=== PATIENT | male | born 1940 | race Hispanic/Latino ===

== ENCOUNTER 2017-11-05 09:25 | Outpatient (CLI) | payer MEDICARE ==
--- NOTE | 2017-11-05 14:25 | Vascular Lab Report ---
Right Lower Extremity Venous Duplex Study: Reason for Exam: Pain and swelling of the right lower extremity. Comments on the Right: All veins visualized are freely compressible without evidence of internal echogenicity. Flow is spontaneous and phasic throughout. No evidence of acute or chronic thrombus is seen in any of the vessels visualized. Greater saphenous vein appears to be absent. Comments on the Left: A limited duplex study was done of the proximal veins of the left lower extremity. All veins visualized are freely compressible without evidence of internal echogenicity. Flow is spontaneous and phasic throughout. No evidence of acute or chronic thrombus is seen in any of the vessels visualized. Impression: No evidence of acute or chronic deep venous thrombosis in the right lower extremity.
== END 2017-11-05 09:26 | disposition home or self-care (01) ==
LOC: VAS 09:25
PROVIDERS: ATTEND Internal Medicine
DX: M79.604 Pain in right leg (principal); M79.89 Other specified soft tissue disorders; I10 Essential (primary) hypertension

== ENCOUNTER 2018-07-28 07:55 | Outpatient (CLI) | payer MEDICARE ==
[2018-07-28 08:21] LABS: Blood Urea Nitrogen 16 mg/dL (9-20)
--- NOTE | 2018-07-28 09:20 | Cat Scan Report ---
CTA CHEST: HISTORY: Dyspnea. COMPARISON: none. TECHNIQUE: Helical CT in 1.25mm intervals following IV contrast. Pulmonary embolus protocol. Sagittal and coronal reformatted images. Rotational MIP images. FINDINGS: Contrast bolus is satisfactory. No pulmonary embolus is identified. Thyroid gland: Normal. Tracheobronchial tree: Normal. Esophagus: Normal. Heart: Normal. Previous CABG changes are identified. Pericardium: Normal. Mediastinum: Normal. Lung [place]: Normal. Pleural Spaces: Normal. Musculoskeletal: Intact. Mild thoracic spondylosis. IMPRESSION: No evidence for pulmonary embolus. Unremarkable CT chest with contrast.
== END 2018-07-28 07:56 | disposition home or self-care (01) ==
LOC: CT 07:55
PROVIDERS: ATTEND Internal Medicine Critical Care Medicine
DX: R06.02 Shortness of breath (principal); I10 Essential (primary) hypertension
CPT/HCPCS: 36415; 71275; 82565; 84520; Q9967

== ENCOUNTER 2021-06-03 18:35 | Emergency (ER) | payer MEDICARE ==
[2021-06-03] MEDS ORDERED: NITROGLYCERIN 2% OINT 1 GM TP ONE (21:55)
--- NOTE | 2021-06-03 22:12 | Emergency Department Report ---
ED Chest Pain HPI - General Chief Complaint: Chest Pain Stated Complaint: CHEST PAIN Time Seen by Provider: 06/03/21 21:48 Source: EMS Mode of arrival: Stretcher Limitations: No Limitations - History of Present Illness Initial Comments: Patient is an 81-year-old male with a past medical history of hypertension and coronary artery disease status post two-vessel CABG in 2010 as well as multiple abdominal surgeries who is presenting with chest pain. Patient states he was home at rest and started having some central chest pressure which he states was a heaviness. Some associated shortness of breath. Denies nausea vomiting diarrhea cough cold or congestion. Patient took his blood pressure and his systolic was greater than 200. He called his physician who told him to take some deep breaths and recheck his blood pressure. The pressure did improve however the patient's pain came back and his pressure went up again. This prompted him to call paramedics to bring him to the hospital. Patient states he has been chest pain-free since his two-vessel CABG. - Related Data Home Medications Medication Instructions Recorded Confirmed Last Taken Atorvastatin [Lipitor] 40 mg PO QHS 01/11/14 01/11/14 01/11/14 Cyanocobalamin/Folic Acid [Vitamin 1 each PO DAILY 01/11/14 01/11/14 01/11/14 D03-Vsaxs Acid Tablet] Lubiprostone (Nf) [Amitiza (Nf)] 24 mcg PO DAILY 01/11/14 01/11/14 01/11/14 Metoprolol Xl [Metoprolol 25 mg PO QDAY 01/11/14 01/11/14 01/11/14 SUCCINATE ER TAB] Olmesartan/Hydrochlorothiazide 1 tab PO QDAY 01/11/14 01/11/14 01/11/14 [Benicar HCT 40-12.5 mg] Testosterone [Axiron] 30 mg TD DAILY 01/11/14 01/11/14 01/11/14 Previous Rx's Medication Instructions Recorded Last Taken Type Eltrombopag Olamine [Promacta] 100 mg PO DAILY #30 tablet 05/27/18 Unknown Rx predniSONE [Deltasone] 20 mg PO 5XD #25 tab 05/27/18 Unknown Rx Allergies Allergy/AdvReac Type Severity Reaction Status Date / Time NSAIDS (Non-Steroidal Allergy Unknown Verified 06/03/21 21:46 Anti-Inflamma Heart Score - HEART Score History: Moderately suspicious EKG: Non-specific Age: > 65 Risk factors: > 3 risk factors or hx of atherosclerotic disease Troponin: < normal limit HEART Score: 6 - EKG Read Time Time EKG Completed: 19:57 EKG Read Time: 20:00 ED Review of Systems ROS: Stated complaint: CHEST PAIN Other details as noted in HPI Comment: All other systems reviewed and negative ED Past Medical Hx - Past Medical History Hx Hypertension: Yes Hx Heart Attack/AMI: Yes (2011) Hx Liver Disease: Yes (hep B) Additional medical history: cataract, gore syndrome, Sleep apnea - Surgical History Additional Surgical History: bypass 2011, shoulder, AAA repair 2008 - Social History Smoking Status: Never Smoker - Medications Home Medications: Home Medications Medication Instructions Recorded Confirmed Last Taken Type Atorvastatin [Lipitor] 40 mg PO QHS 01/11/14 01/11/14 01/11/14 History Cyanocobalamin/Folic Acid [Vitamin 1 each PO DAILY 01/11/14 01/11/14 01/11/14 History C14-[id number] Acid Tablet] Lubiprostone (Nf) [Amitiza (Nf)] 24 mcg PO DAILY 01/11/14 01/11/14 01/11/14 History Metoprolol Xl [Metoprolol 25 mg PO QDAY 01/11/14 01/11/14 01/11/14 History SUCCINATE ER TAB] Olmesartan/Hydrochlorothiazide 1 tab PO QDAY 01/11/14 01/11/14 01/11/14 History [Benicar HCT 40-12.5 mg] Testosterone [Axiron] 30 mg TD DAILY 01/11/14 01/11/14 01/11/14 History Eltrombopag Olamine [Promacta] 100 mg PO DAILY #30 tablet 05/27/18 Unknown Rx predniSONE [Deltasone] 20 mg PO 5XD #25 tab 05/27/18 Unknown Rx ED Physical Exam - General Limitations: No Limitations General appearance: alert, in no apparent distress, other (pleasent and in no obvious distress) - Head Head exam: Present: atraumatic, normocephalic - Eye Eye exam: Present: normal appearance, PERRL, EOMI - ENT ENT exam: Present: mucous membranes moist - Neck Neck exam: Present: normal inspection - Respiratory Respiratory exam: Present: normal lung sounds bilaterally. Absent: respiratory distress, wheezes, rales, rhonchi - Cardiovascular Cardiovascular Exam: Present: regular rate, normal rhythm, normal heart sounds. Absent: systolic murmur, diastolic murmur, rubs, gallop - GI/Abdominal GI/Abdominal exam: Present: soft, normal bowel sounds. Absent: distended, t enderness, guarding, rebound, rigid - Rectal Rectal exam: Present: deferred - Extremities Exam Extremities exam: Present: normal inspection - Back Exam Back exam: Present: normal inspection - Neurological Exam Neurological exam: Present: alert, oriented X3 - Psychiatric Psychiatric exam: Present: normal affect, normal mood - Skin Skin exam: Present: warm, dry, intact, normal color. Absent: rash ED Course Vital Signs 06/03/21 06/03/21 06/04/21 21:49 22:51 00:01 Temperature 98.9 F Pulse Rate 96 H 89 97 H Respiratory 16 18 Rate Blood Pressure 149/78 Blood Pressure 160/95 137/83 [Left] O2 Sat by Pulse 97 2 L Oximetry 06/04/21 06/04/21 06/04/21 00:30 01:39 02:08 Temperature Pulse Rate 82 83 81 Respiratory 17 17 16 Rate Blood Pressure Blood Pressure 127/71 131/76 121/64 [Left] O2 Sat by Pulse 99 99 98 Oximetry KAREN score - Karen Score Age > 65: (1) Yes Aspirin use within the Past 7 Days: (1) Yes 3 or more CAD Risk Factors: (1) Yes 2 or more Angina events in past 24 hrs: (1) Yes Known CAD with more than 50% Stenosis: (0) No Elevated Cardiac Markers: (0) No ST Deviation Greater than 0.5mm: (0) No KAREN Score: 4 ED Medical Decision Making - Lab Data Result diagrams: 06/03/21 22:43 06/03/21 22:43 Lab Results 06/03/21 06/03/21 06/03/21 Range/Units 22:43 22:43 22:43 WBC 8.5 (4.5-11.0) K/mm3 RBC 5.57 H (3.65-5.03) M/mm3 Hgb 16.3 H (11.8-15.2) gm/dl Hct 51.9 H (35.5-45.6) % MCV 93 (84-94) fl MCH 29 (28-32) pg MCHC 31 L (32-34) % RDW 14.8 (13.2-15.2) % Plt Count 220 (140-440) K/mm3 Lymph % (Auto) 4.8 L (13.4-35.0) % [place] % (Auto) 15.3 H (0.0-7.3) % Eos % (Auto) 1.5 (0.0-4.3) % Baso % (Auto) 0.6 (0.0-1.8) % Lymph # (Auto) 0.4 L (1.2-5.4) K/mm3 [place] # (Auto) 1.3 H (0.0-0.8) K/mm3 Eos # (Auto) 0.1 (0.0-0.4) K/mm3 Baso # (Auto) 0.0 (0.0-0.1) K/mm3 Seg Neutrophils % 77.8 H (40.0-70.0) % Seg Neutrophils # 6.6 (1.8-7.7) K/mm3 PT 13.0 (12.2-14.9) Sec. INR 0.88 (0.87-1.13) APTT 26.0 (24.2-36.6) Sec. D-Dimer 940.56 H (0-234) ng/mlDDU Sodium (137-145) mmol/L Potassium (3.6-5.0) mmol/L Chloride (98-107) mmol/L Carbon Dioxide (22-30) mmol/L Anion Gap mmol/L BUN (9-20) mg/dL Creatinine (0.8-1.3) mg/dL Estimated GFR ml/min BUN/Creatinine Ratio % Glucose (75-100) mg/dL Calcium (8.4-10.2) mg/dL Total Bilirubin (0.1-1.2) mg/dL AST (5-40) units/L ALT (7-56) units/L Alkaline Phosphatase (35-129) units/L Troponin T (0.00-0.029) ng/mL NT-Pro-B Natriuret Pep 255.9 (0-900) pg/mL Total Protein (6.3-8.2) g/dL Albumin (3.9-5) g/dL Albumin/Globulin Ratio % Urine Color (Yellow) Urine Turbidity (Clear) Urine pH (5.0-7.0) Ur Specific [place] (1.003-1.030) Urine Protein (Negative) mg/dL Urine Glucose (UA) (Negative) mg/dL Urine Ketones (Negative) mg/dL Urine Blood (Negative) Urine Nitrite (Negative) Urine Bilirubin (Negative) Urine Urobilinogen (<2.0) mg/dL Ur Leukocyte Esterase (Negative) Urine WBC (Auto) (0.0-6.0) /HPF Urine RBC (Auto) (0.0-6.0) /HPF Urine WBC Clumps /HPF Urine Yeast (Budding) /HPF 06/03/21 06/04/21 Range/Units 22:43 01:12 WBC (4.5-11.0) K/mm3 RBC (3.65-5.03) M/mm3 Hgb (11.8-15.2) gm/dl Hct (35.5-45.6) % MCV (84-94) fl MCH (28-32) pg MCHC (32-34) % RDW (13.2-15.2) % Plt Count (140-440) K/mm3 Lymph % (Auto) (13.4-35.0) % [place] % (Auto) (0.0-7.3) % Eos % (Auto) (0.0-4.3) % Baso % (Auto) (0.0-1.8) % Lymph # (Auto) (1.2-5.4) K/mm3 [place] # (Auto) (0.0-0.8) K/mm3 Eos # (Auto) (0.0-0.4) K/mm3 Baso # (Auto) (0.0-0.1) K/mm3 Seg Neutrophils % (40.0-70.0) % Seg Neutrophils # (1.8-7.7) K/mm3 PT (12.2-14.9) Sec. INR (0.87-1.13) APTT (24.2-36.6) Sec. D-Dimer (0-234) ng/mlDDU Sodium 141 (137-145) mmol/L Potassium 3.4 L (3.6-5.0) mmol/L Chloride 101.8 (98-107) mmol/L Carbon Dioxide 25 (22-30) mmol/L Anion Gap 18 mmol/L BUN 10 (9-20) mg/dL Creatinine 1.3 (0.8-1.3) mg/dL Estimated GFR 53 ml/min BUN/Creatinine Ratio 8 % Glucose 84 (75-100) mg/dL Calcium 8.6 (8.4-10.2) mg/dL Total Bilirubin 1.50 H (0.1-1.2) mg/dL AST 24 (5-40) units/L ALT 24 (7-56) units/L Alkaline Phosphatase 88 (35-129) units/L Troponin T < 0.010 (0.00-0.029) ng/mL NT-Pro-B Natriuret Pep (0-900) pg/mL Total Protein 6.2 L (6.3-8.2) g/dL Albumin 3.9 (3.9-5) g/dL Albumin/Globulin Ratio 1.7 % Urine Color Red (Yellow) Urine Turbidity Cloudy (Clear) Urine pH 5.0 (5.0-7.0) Ur Specific [place] 1.028 (1.003-1.030) Urine Protein >500 (Negative) mg/dL Urine Glucose (UA) Neg (Negative) mg/dL Urine Ketones Tr (Negative) mg/dL Urine Blood Lg (Negative) Urine Nitrite Neg (Negative) Urine Bilirubin Neg (Negative) Urine Urobilinogen < 2.0 (<2.0) mg/dL Ur Leukocyte Esterase Mod (Negative) Urine WBC (Auto) > 182.0 H (0.0-6.0) /HPF Urine RBC (Auto) > 182.0 (0.0-6.0) /HPF Urine WBC Clumps 3+ /HPF Urine Yeast (Budding) 2+ /HPF - EKG Data -: EKG Interpreted by Ks - EKG Data 06/03/21 22:13 EKG shows a normal sinus rhythm with a rate of 85. [place] is normal intervals normal PACs present no ST segment elevations or depressions. 1999 - Radiology Data CHEST 2 VIEWS INDICATION / CLINICAL INFORMATION: chest pain. COMPARISON: None available. FINDINGS: SUPPORT DEVICES: Stable, satisfactory device positioning. HEART / MEDIASTINUM: No significant abnormality. LUNGS / PLEURA: Lungs are hyperinflated. Mild increased interstitial process in lungs could represent chronic interstitial change no focal consolidation No pneumothorax. Signer Name: Jaime Hoang MD Signed: 06/03/2021 10:24 PM Workstation Name: [id number] CTA CHEST WITH IV CONTRAST INDICATION / CLINICAL INFORMATION: chest pain, elevated ddimer. TECHNIQUE: Axial CT images were obtained through the chest after injection of 100 cc Omnipaque 350 IV contrast. 3 plane MIP and/or 3D reconstructions were produced. All CT scans at this location are performed using CT dose reduction for ALARA by means of automated exposure control. COMPARISON: Chest radiograph 06/03/2021, CTA chest 07/28/2018 FINDINGS: PULMONARY ARTERIES: No pulmonary emboli. THORACIC AORTA: No significant abnormality. HEART: No significant abnormality. CORONARY ARTERIES: Significant coronary artery calcification is noted. Prior CABG surgery PLEURA: No pleural effusion. No pneumothorax. LYMPH NODES: No significant adenopathy. LUNGS: No acute air space or interstitial disease. ADDITIONAL FINDINGS: None. UPPER ABDOMEN: Gallstones are present within the gallbladder. No obvious signs of acute cholecystitis. Gallbladder is incompletely visualized, however. Calcified plaque noted throughout the visualized portion of the abdominal aorta. SKELETAL STRUCTURES: No significant acute osseous abnormality. IMPRESSION: 1. No CT evidence for pulmonary embolism. 2. No acute pulmonary or pleural disease. 3. Cholelithiasis without CT suggestion of acute cholecystitis. However, please note that the gallbladder is incompletely visualized and clinical correlation is recommended. Signer Name: Velvet Garcia MD Signed: 06/04/2021 1:32 AM Workstation Name: [id number] - Medical Decision Making Patient is a 81-year-old gentleman who is presenting with some chest pain. Blood pressure was elevated during episodes of chest pain. No exertional component. Patient still feeling some mild discomfort but nothing like it was when the pain was happening at home. Patient's had 2 - troponins has a clear chest x-ray. EKG shows no evidence of any ST elevation or depression. Patient is quite worried about his heart. 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 Pain could be coming from some gallstones but patient has a heart score which is elevated and will be prudent to have the patient fully ruled out for acute coronary syndrome. Patient admitted to hospitalist service with cardiology consult. Additionally the patient has a UTI and is on antibiotics. We'll start the patient on Levaquin Critical care attestation.: If time is entered above; I have spent that time in minutes in the direct care of this critically ill patient, excluding procedure time. ED Disposition Clinical Impression: Chest pain, Acute cystitis, Cholelithiasis Disposition: ADMITTED INPATIENT Is pt being admited?: Yes Does the pt Need Aspirin: No Condition: Stable Instructions: Nonspecific Chest Pain, Adult Time of Disposition: 02:16
--- NOTE | 2021-06-03 22:29 | XRay Report ---
CHEST 2 VIEWS INDICATION / CLINICAL INFORMATION: chest pain. COMPARISON: None available. FINDINGS: SUPPORT DEVICES: Stable, satisfactory device positioning. HEART / MEDIASTINUM: No significant abnormality. LUNGS / PLEURA: Lungs are hyperinflated. Mild increased interstitial process in lungs could represent chronic interstitial change no focal consolidation No pneumothorax. Signer Name: Jaime Hoang MD Signed: 06/03/2021 10:24 PM Workstation Name: [id number]
[2021-06-03] MEDS ORDERED: ACETAMINOPHEN 500 MG TAB PO ONE ×2 (22:53)
[2021-06-03 23:16] LABS: Basophils % (Auto) 0.6 % (0.0-1.8); Eosinophils # (Auto) 0.1 K/mm3 (0.0-0.4); Eosinophils % (Auto) 1.5 % (0.0-4.3); Lymphocytes # (Auto) 0.4 K/mm3 (1.2-5.4); Lymphocytes % (Auto) 4.8 % (13.4-35.0); Mean Corpuscular HGB Conc 31 % (32-34); Mean Corpuscular Volume 93 fl (84-94); Monocytes # (Auto) 1.3 K/mm3 (0.0-0.8); Monocytes % (Auto) 15.3 % (0.0-7.3); Platelet Count 220 K/mm3 (140-440); Red Blood Count 5.57 M/mm3 (3.65-5.03); Red Cell Distribution Width 14.8 % (13.2-15.2)
[2021-06-03 23:20] LABS: Hematocrit 51.9 % (35.5-45.6); Hemoglobin 16.3 gm/dl (11.8-15.2)
[2021-06-03 23:25] LABS: INR 0.88 (0.87-1.13)
[2021-06-03 23:44] LABS: Alanine Aminotransferase 24 units/L (7-56); Albumin 3.9 g/dL (3.9-5); BUN/Creatinine Ratio 8; Blood Urea Nitrogen 10 mg/dL (9-20); Calcium 8.6 mg/dL (8.4-10.2); Hemolysis Index 8
[2021-06-04 01:22] LABS: Bilirubin,Urine NEG (Negative); Blood,Urine LG (Negative); Color,Urine Red (Yellow); Urobilinogen,Urine < 2.0 mg/dL (<2.0)
[2021-06-04 01:32] LABS: Protein,Urine >500 mg/dL (Negative); RBC,Urine > 182.0 /HPF (0.0-6.0); WBC,Urine > 182.0 /HPF (0.0-6.0)
[2021-06-04] MEDS ORDERED: MORPHINE 4 MG/1 ML INJ IV ONE (01:34)
[2021-06-04] MEDS ORDERED: MORPHINE 4 MG/1 ML INJ ONE (01:35)
--- NOTE | 2021-06-04 01:36 | Cat Scan Report ---
CTA CHEST WITH IV CONTRAST INDICATION / CLINICAL INFORMATION: chest pain, elevated ddimer. TECHNIQUE: Axial CT images were obtained through the chest after injection of 100 cc Omnipaque 350 IV contrast. 3 plane MIP and/or 3D reconstructions were produced. All CT scans at this location are performed usin g CT dose reduction for RAGINI by means of automated exposure control. COMPARISON: Chest radiograph 06/03/2021, CTA chest 07/28/2018 FINDINGS: PULMONARY ARTERIES: No pulmonary emboli. THORACIC AORTA: No significant abnormality. HEART: No significant abnormality. CORONARY ARTERIES: Significant coronary artery calcification is noted. Prior CABG surgery PLEURA: No pleural effusion. No pneumothorax. LYMPH NODES: No significant adenopathy. LUNGS: No acute air space or interstitial disease. ADDITIONAL FINDINGS: None. UPPER ABDOMEN: Gallstones are present within the gallbladder. No obvious signs of acute cholecystitis . Gallbladder is incompletely visualized, however. Calcified plaque noted throughout the visualized portion of the abdominal aorta. SKELETAL STRUCTURES: No significant acute osseous abnormality. IMPRESSION: 1. No CT evidence for pulmonary embolism. 2. No acute pulmonary or pleural disease. 3. Cholelithiasis without CT suggestion of acute cholecystitis. However, please note that the gallbla dder is incompletely visualized and clinical correlation is recommended. Signer Name: Velvet Garcia MD Signed: 06/04/2021 1:32 AM Workstation Name: [id number]
[2021-06-04 02:09] VITALS: BP 121/64
[2021-06-04] MEDS ORDERED: levoFLOXacin 500 MG TAB PO ONE (02:16)
--- NOTE | 2021-06-04 08:51 | Electrocardiograph Report ---
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
== END 2021-06-04 03:30 | disposition home or self-care (01) ==
LOC: ED 18:35
DX: R07.9 Chest pain, unspecified (principal); N30.00 Acute cystitis without hematuria; K80.20 Calculus of gallbladder without cholecystitis without obstruction; Z88.6 Allergy status to analgesic agent
CPT/HCPCS: 36415; 71046; 71275; 80053; 81001; 83880; 84484; 85025; 85379; 85610; 85730; 93005; 96374; 99285; J2270; Q9967